=== PATIENT | male | born 1935 | race Caucasian/White ===

== ENCOUNTER 2018-05-25 10:41 | Inpatient (IN) | payer MEDICARE, OTHER ==
[~2018-05-25] VITALS: Ht 182.9 cm; Wt 83.0 kg
[2018-05-25] MEDS ORDERED: KLOR-CON 1010 MEQ PO (10:53)
[2018-05-25 10:54] VITALS: BP 119/43
[2018-05-25] MEDS ORDERED: XARELTO20 MG PO (10:54)
[2018-05-25] MEDS ORDERED: PACERONE 200 M200 M1 PO (10:54)
[2018-05-25] MEDS ORDERED: LASIX 40 MG TAB40 M2 PO (10:54)
[2018-05-25] MEDS ORDERED: TOPROL XL25 MG PO (10:55)
[2018-05-25] MEDS ORDERED: ASPIR 8181 MG PO (10:56)
[2018-05-25 11:11] LABS: ABSOLUTE BASOPHILS 0.1 thou/uL (0.0-0.2); ABSOLUTE EOSINOPHILS 0.3 thou/uL (0.0-0.7); ABSOLUTE LYMPHOCYTES 1.3 thou/uL (0.8-5.3); ABSOLUTE MONOCYTES 0.3 thou/uL (0.0-1.2); ABSOLUTE NEUTROPHILS 2.5 thou/uL (1.6-8.1); BASOPHILS 1.2 %; HEMATOCRIT 30.3 % (42.0-52.0); HEMOGLOBIN 9.9 gm/dL (14.0-18.0); LYMPHOCYTES 29.6 %; MCH 28.3 pg (26.0-34.0); MCHC 32.5 g/dL (28.0-37.0); MCV 87.1 fL (80.0-100.0); MONOCYTES 6.2 %; MPV 6.6 fl. (7.2-11.1); NUCLEATED RBCS 0 /100WBC; PLATELET COUNT* 134 thou/uL (150-400); RBC 3.48 mil/uL (4.50-6.00); RDW-CV 16.2 % (10.5-14.5); WBC 4.5 thou/uL (4.0-11.0)
[2018-05-25 11:21] LABS: ANION GAP 8 mmol/L (7-16); BUN 22 mg/dL (7-18); CHLORIDE 105 mmol/L (98-107); CO2 27 mmol/L (21-32); CREATININE 1.3 mg/dL (0.6-1.3); GLUCOSE 88 mg/dL (70-99); POTASSIUM 4.6 mmol/L (3.5-5.1); SODIUM 140 mmol/L (136-145)
[2018-05-25 11:27] LABS: ALBUMIN 2.7 g/dL (3.4-5.0); ALKALINE PHOSPHATASE 53 U/L (46-116); SGOT 19 U/L (15-37); SGPT 21 U/L (30-65); TOTAL BILIRUBIN 0.5 mg/dL (<0.1-1.0); TOTAL PROTEIN 5.6 g/dL (6.4-8.2); TROPONIN-I LEVEL <0.06 ng/mL (<0.06)
[2018-05-25 14:37] VITALS: BP 99/45
[2018-05-25 15:14] VITALS: BP 122/42
--- NOTE | 2018-05-25 17:49 | EKG ---
[place] [address] ELECTROCARDIOGRAM REPORT Name: PRADIP DALLAS Room: [address] ADM IN M.R.#: [id number] Admission: 05/25/18 Attend Phys: Sarah Brown MD Discharge: Date of : 35 Report #: [id number] THIS REPORT FOR: //name// [facility] ED Test Date: 2018-05-25 Test Time: 11:03:01 Pat Name: PRADIP DALLAS Department: Room: [facility] Gender: M Cream Gatherer: JEREMIE DONNELLY : 1935 Requested By: Allyssa Bird Order Number: [id number] MD: Jurgen Simpson Measurements Intervals [place] Rate: 67 P: AK: QRS: -42 QRSD: 106 T: QT: 432 QTc: 456 Interpretive Statements Atrial flutter with predominant 4:1 AV block Left axis deviation Abnormal R-wave progression, late transition Repol abnrm, severe global ischemia (LM/MVD) Artifact in lead(s) I,II,III,aVR,aVL,aVF,V1,V2 and baseline wander in lead(s) V3 No previous ECG available for comparison Electronically Signed On 05-25-2018 17:49:42 REROLLER HAND by Jurgen Simpson [email or web address] <ELECTRONICALLY SIGNED> By: Jurgen Simpson MD, FACC 05/25/18 1749 1103 1103 Jurgen Simpson MD, FACC /EPI
--- NOTE | 2018-05-25 18:46 | NUR ---
PT TO FLOOR AT APPROX 1500 THIS SHIFT. PT IS ALERT AND ORIENTED TO SELF, POOR HISTORIAN. TELE TRACKING AFIB RATES 60'S-70'S, VSS ON ROOM AIR. RIGHT ARM DRESSED WITH MODERATE DRAINAGE. DENIES PAIN, NUMBNESS OR TINGLING TO RIGHT ARM. PT AND FAMILY EDUCATED ON SAFETY AND PLAN OF CARE. PLEASE SEE ASSESSMENT FOR ADDITIONAL INFORMATION. WILL CONTINUE TO MONITOR.
[2018-05-25 20:00] VITALS: BP 101/49
[2018-05-25 20:23] LABS: APTT 36.7 Seconds (25.0-31.3); INR 1.4; PROTIME 13.9 Seconds (9.20-11.50)
[2018-05-26] VITALS: BP 88/42
[2018-05-26 04:00] VITALS: BP 137/65
--- NOTE | 2018-05-26 04:57 | NUR ---
ASSUMED PT CARE @ 1930. A + O X 3. WOUND CARE TO PTS R FOREARM SKIN TEAR. DRESSING AND CHRISTA WRAP AND CHUX SATURED WITH BLOOD. NO BLEEDING OBSERVED AFTER WOUND CARE PROVIDED WITH FOAM DRESSING KERLEX AND CHRISTA WRAP. PT HAS 3+ EDEMA ON R HAND THROUGH OUT SHIFT. ELEVATED HAND ON MULTIPLE PILLOWS. PT COMPLIANT W ELEVATION. REMOVED ACEWRAP. WILL CONTINUE TO OBSERVE TO SEE IF SWELLING IMPROVES AND PASS ON IN REPORT. NO OTHER ISSUES NOTED. SEE EMAR AND CHARTING. CALL LIGHT AT BEDSIDE. HOURLY ROUNDING DONE FOR SAFETY.
[2018-05-26 05:10] LABS: HEMATOCRIT 24.1 % (42.0-52.0); MCH 28.7 pg (26.0-34.0); MCHC 33.1 g/dL (28.0-37.0); MCV 86.7 fL (80.0-100.0); RBC 2.78 mil/uL (4.50-6.00); RDW-CV 16.2 % (10.5-14.5); WBC 5.2 thou/uL (4.0-11.0)
[2018-05-26 05:22] LABS: CALCIUM 7.9 mg/dL (8.5-10.1); CREATININE 1.3 mg/dL (0.6-1.3); MAGNESIUM 1.9 mg/dL (1.8-2.4); POTASSIUM 4.5 mmol/L (3.5-5.1)
[2018-05-26 08:00] VITALS: BP 92/51
--- NOTE | 2018-05-26 08:00 | NUR ---
ASSUMED CARE OF PT ASSESSED AND DOCUMENTED. PT IS ON CARDIAC MONITER TRACING ST HR 119. PT IS A&0 X3 AND HAS NO C/O PAIN. PT IS ON ROOM AIR AND IS AFEBRILE. PT IS ON FALL PRECATIONS PER FACILITY PROTOCOL. PT HAS A SOFT BP OF 92/51. DAUGHTER IS AT BEDSIDE. BED IS IN LOW POSITION CALL LIGHT IS IN REACH. WM.
--- NOTE | 2018-05-26 11:46 | NUR ---
WOUND CARE NOTE: CONSULT RECEIVED FOR RIGHT FOREARM WOUND. PATIENT SUSTAINED A SKIN TEAR ON TUESDAY THIS WEEK AND EVER SINCE THE SKIN TEAR HAS BEEN DRAINING. FROM NOTES, IT APPEARS THAT THE WOUND WAS SATURATING THE DRESSING AND CHUX OVER NIGHT. CURRENTLY NO STRIKETHROUGH ON DRESSING. REMOVED DRESSING. GENTLY REMOVED 2 OPTIFOAMS FROM WOUND. APPEARS THAT DISTAL MOST PORTION OF WOUND BED CONTINUES TO HAVE GELFOAM IN PLACE, LEFT IN PLACE TO NOT DISRUPT ANY CLOTS THAT MAY HAVE FORMED. PROXIMAL MOST PORTION OF WOUND WITH PINK, MOIST TISSUE. GENTLY CLEANSED WOUND WITH WOUND CLEANSER. WOUND MEASURES 7.5X2X0.1. ECCHYMOSIS NOTED TO JC-WOUND AND IN HAND. APPLIED MULTIPLE LAYERS OF VASELINE GAUZE. COVERED WITH 4X4. SECURED WITH ROLL GAUZE. PATIENT TOLERATED DRESSING CHANGE WELL. EDUCATED FAMILY MEMBER AND PATIENT ON DRESSING SELECTION, COMMUNICATED UNDERSTANDING. RECOMMEND USE MULTIPLE LAYERS OF VASELINE GAUZE OVER WOUND BED. CHANGE DRESSING DAILY DO NOT REMOVE GELFOAM, WILL COME OFF/DISOLVE ON OWN. PROTECT AREA FROM TRAUMA ENCOURAGE GOOD NUTRTION/HYDRATION FOR WOUND HEALING FOLLOW UP IN WOUND CENTER UPON DISCHARGE
[2018-05-26 12:00] VITALS: BP 101/70
--- NOTE | 2018-05-26 15:17 | NUR ---
Pt is A&O. Resides at home with his dtr and extended family. Dtr completes ADLs. Pt uses a RW for household mobility. Pt has a wc, power wc and hospital bed. Pt recently moved to this area. Hx of HH. CM spoke with PT regarding disposition, PT recommended at the least HH at dc, but Pt could also benefit from skilled. CM following for disposition.
--- NOTE | 2018-05-26 15:40 | 2DMMODE ---
[place] [address] 2 D/M-MODE ECHOCARDIOGRAM Name: CELENAPRADIP L Room: [address] IN [facility]#: [id number] Admission: 05/25/18 Attend Phys: Sarah Brown, Discharge: Date of : 35 Date of Service: 05/26/18 1540 Report #: [id number] THIS REPORT FOR: //name// APPROVED REPORT Study performed: 05/26/2018 10:18:34 EXAM: Comprehensive 2D, Doppler, and color-flow Echocardiogram Patient Location: In-Patient Room #: [facility] Status: routine BSA: 2.10 HR: 88 bpm BP: 92/51 mmHg Rhythm: Atrial Flutter Other Information Study Quality: Good Indications Atrial Fibrillation 2D Dimensions IVSd: 9.06 (7-11mm) LVOT Diam: 22.85 (18-24mm) LVDd: 51.82 mm PWd: 10.10 (7-11mm) Ascending Ao: 35.28 (22-36mm) LVDs: 39.81 (25-40mm) Aortic Root: 37.54 mm Volumes Left Atrial Volume (Systole) LA ESV Index: 50.50 mL/m2 Aortic Valve AoV Peak Jaren.: 1.36 m/s AO Peak Gr.: 7.43 mmHg LVOT Max P.29 mmHg AO Mean Gr.: 4.30 mmHg LVOT Mean P.19 mmHg LVOT Max V: 0.76 m/s AO V2 VTI: 22.54 cm LVOT Mean V: 0.50 m/s DARLENE (VTI): 2.33 cm2 LVOT V1 VTI: 12.83 cm Mitral Valve MV Decel. Time: 162.62 ms MV PHT: 47.16 ms MVA (PHT): 4.67 cm2 [place] [address] 2 D/M-MODE ECHOCARDIOGRAM Name: PRADIP DALLAS Room: [address] IN [facility].#: [id number] Admission: 05/25/18 Attend Phys: Sarah Brown, Discharge: Date of : 35 Date of Service: 05/26/18 1540 Report #: [id number] TDI Medial E' Jaren.: 0.14 m/s Lateral E' Jaren.: 0.17 m/s Pulmonary Valve PV Peak Jaren.: 0.69 m/s PV Peak Gr.: 1.92 mmHg Tricuspid Valve RAP Estimate: 5.00 mmHg TR Peak Gr.: 21.34 mmHg RVSP: 26.00 mmHg PA Pressure: 26.00 mmHg Left Ventricle The left ventricle is normal size. There is moderate global hypokinesis. There is normal left ventricular wall thickness. Left ventricular systolic function is moderately decreased. LVEF is 35-40%. This study is not technically sufficient to allow evaluation of the LV diastolic function due to atrial fibrillation. Right Ventricle The right ventricle is normal size. The right ventricular systolic function is normal. Atria Left atrium is severely dilated. Right atrium is moderately dilated. Aortic Valve Mild aortic valve sclerosis. No aortic regurgitation is present. There is no aortic valvular stenosis. Mitral Valve The mitral valve is normal in structure. Trace mitral regurgitation. No evidence of mitral valve stenosis. Tricuspid Valve The tricuspid valve is normal in structure. Mild tricuspid regurgitation. No pulmonary hypertension. Pulmonic Valve The pulmonary valve is normal in structure. There is no pulmonic valvular regurgitation. Great Vessels The aortic root is normal in size. IVC is [place] [address] 2 D/M-MODE ECHOCARDIOGRAM Name: PRADIP DALLAS Room: [address]#: [id number] Admission: 05/25/18 Attend Phys: Sarah Brown, Discharge: Date of : 35 Date of Service: 05/26/18 1540 Report #: [id number] collapses >50% with inspiration. Pericardium There is no pericardial effusion. <Conclusion> The left ventricle is normal size. There is normal left ventricular wall thickness. Left ventricular systolic function is moderately decreased. LVEF is 35-40%. There is moderate global hypokinesis. Left atrium is severely dilated. Right atrium is moderately dilated. Trace mitral regurgitation. Mild tricuspid regurgitation. No pulmonary hypertension. <ELECTRONICALLY SIGNED> By: Jurgen Simpson MD, FACC 05/26/18 1540 1540 1540 Jurgen Simpson MD, FACC /INF
[2018-05-26 16:11] VITALS: BP 97/59
[2018-05-26 20:00] VITALS: BP 110/48
[2018-05-27 00:55] VITALS: BP 102/45
[2018-05-27 04:32] VITALS: BP 99/50
[2018-05-27 04:43] LABS: HEMATOCRIT 23.5 % (42.0-52.0); HEMOGLOBIN 7.9 gm/dL (14.0-18.0); MCH 28.7 pg (26.0-34.0); MCHC 33.5 g/dL (28.0-37.0); MCV 85.8 fL (80.0-100.0); MPV 6.7 fl. (7.2-11.1); RBC 2.74 mil/uL (4.50-6.00); RDW-CV 16.1 % (10.5-14.5)
[2018-05-27 05:03] LABS: CALCIUM 7.8 mg/dL (8.5-10.1); CREATININE 1.3 mg/dL (0.6-1.3); MAGNESIUM 1.9 mg/dL (1.8-2.4)
--- NOTE | 2018-05-27 05:57 | NUR ---
PATIENT RESTED IN BED, PATIENT SHOWED SIGNS OF CONFUSSION AND FORGETFULNESS. PATIENT DID NOT SHOW SIGNS OF DISTRESS. FALL PRECAUTIONS IN PLACE, CALL LIGHT WITH IN REACH, HOURLY ROUNDING OBSERVED, BED ALARM ON. PATIENT DID NOT SHOW SIGNS OF BLEEDING.
--- NOTE | 2018-05-27 07:30 | NUR ---
CHANGE OF SHIFT BEDSIDE REPORT GIVEN PATIENT SEEN AT BEDSIDE IN BED ASLEEP ASSUMED PATIENT CARE
[2018-05-27 08:00] VITALS: BP 94/50
[2018-05-27 12:11] VITALS: BP 101/46
--- NOTE | 2018-05-27 15:06 | NUR ---
CM spoke with dtr regarding disposition. Dtr wants Pt to dc home with HH, does not want skilled. Dtr wishes to use [facility] at dc. Pt's facesheet, H&P and dc orders (including signed face 2 face) will need to be faxed to [phone] p:[phone]
[2018-05-27 17:13] VITALS: BP 100/45
--- NOTE | 2018-05-27 18:34 | NUR ---
PATIENT A AND O X 3, FORGETFUL AFIB CTA/DIM/RA AMENDED DIET HONEY-THICK LIQ LAST BM T-1 URINE PER URINAL UP WITH 1 ASSIST TO CHAIR IV 20 GA SL L AC NO C/O PAIN R FA WOUND DRSG CHANGE TODAY PER DRS ORDERS BED ALARM SET WHILE IN BED INSTRUCTION HONING JOB SETTER LIGHT GIVEN
[2018-05-27 20:00] VITALS: BP 98/45
[2018-05-28 00:46] VITALS: BP 103/58
--- NOTE | 2018-05-28 01:09 | NUR ---
PATIENT RESTED IN BED, NO ACUTE CHANGES. PATIENT DID NOT SHOW SIGNS OF DISTRESS. FALL PRECAUTIONS IN PLACE, CALL LIGHT WITH IN REACH, HOURLY ROUNDING OBSERVED, BED ALARM ON.
[2018-05-28 04:38] VITALS: BP 99/40
--- NOTE | 2018-05-28 07:10 | NUR ---
CHANGE OF SHIFT BEDSIDE REPORT GIVEN PATIENT SEEN AT BEDSIDE, IN BED ASLEEP ASSUMED CARE
[2018-05-28 08:00] VITALS: BP 116/50
[2018-05-28 13:13] VITALS: BP 114/56
[2018-05-28 16:00] VITALS: BP 105/46
[2018-05-28 19:50] VITALS: BP 115/49
[2018-05-29] VITALS: BP 77/50
[2018-05-29 04:00] VITALS: BP 99/53
--- NOTE | 2018-05-29 06:57 | NUR ---
VITALS WNL. SEE MAR. SEE CHARTING. FALL PRECATUIONS IN PLACE. HOURLY ROUNDING FOR SAFETY.
[2018-05-29 07:50] VITALS: BP 95/51
--- NOTE | 2018-05-29 08:38 | NUR ---
ASSUMED CARE OF PT AT 0730. PT RESTING IN BED DRINKING COFFEE. DAUGHTER AT BEDSIDE. PT A&0X3, FORGETFUL AND CONFUSED AT TIMES. PT DENIES ANY PAIN OR SHORTNESS OF BREATH AT THIS TIME. PT STATES HE IS READY TO GO HOME. PT TRACING A-FLUTTER ON THE BIOLOGICAL ENGINEER. BLOOD PRESSURE SOFT AT 94/50. SWATI SHRESTHA, CARDIOLOGY DELTA SYSTEM FREIGHT CAR CLEANER HERE TO SEE PT. ORDERS RECEIVED TO TISHA VELASQUEZ. REFER TO EMAR. PT ON RA SAT 98%. PT UP WITH 1 ASSIST, UNSTEADY AT TIMES. PT GOAL FOR TODAY IS TO MONITOR BLOOD PRESSURE, MEDICATION MGMT AND DISCHARGE PLANNING TO HOME WITH HOME HEALTH. AM ASSESSMENT CHARTED. MEDICATIONS PER AUG. PT REPOSITIONED EVERY 2 HOURS FOR COMFORT. HOURLY ROUNDING OBSERVED. BED IN LOW POSITION. BED ALARM IN PLACE. FALL PRECAUTIONS IN PLACE. CALL LIGHT WITHIN REACH. WILL CONTINUE PLAN OF CARE.
[2018-05-29] MEDS ORDERED: CARVEDILOL3.125 MG PO (10:56)
--- NOTE | 2018-05-29 11:22 | NUR ---
INSTRUCTIONAL LEADER SPOKE TO INTAKE WITH [facility] TO INFORM OF THE REFERRAL FOR HH, AND FAXED THE PATIENT'S FACESHEET, H&P, AND D/C ORDERS. CM WILL REMAIN AVIALABLE TO ASSIST AND FOLLOW NEEDED.
[2018-05-29 11:24] VITALS: BP 95/51
--- NOTE | 2018-05-29 13:20 | NUR ---
DISCHARGE ORDERS RECEIVED. DISCHARGE INSTRUCTIONS, CARE NOTES, SCRIPTS AND FOLLOW UP APPTS GIVEN TO PT. PT COMMUNICATES UNDERSTANDING OF DISCHARGE TEACHING. IV AND CUSTOMS AND BORDER PROTECTION INSPECTOR REMOVED. PT DISCHARGED WITH ALL BELONGINGS AND PAPERWORK VIA WHEELCHAIR WITH NURSING STAFF TO DAUGHTERS OWN PERSONAL VEHICLE. PT DISCHARGED TO HOME WITH HOME HEALTH.
== END 2018-05-29 13:22 | disposition home health service (06) | DRG 813 ==
LOC: M.ERS 10:41 → M.2W 13:02 → M.TBA-ER 13:02 → M.2W 15:11
PROVIDERS: Personal Emergency Response Attendant; ADMIT Internal Medicine
DX: D68.32 Hemorrhagic disorder due to extrinsic circulating anticoagulants (principal); I50.21 Acute systolic (congestive) heart failure; I48.92 Unspecified atrial flutter; I42.9 Cardiomyopathy, unspecified; E44.0 Moderate protein-calorie malnutrition; R00.1 Bradycardia, unspecified; I11.0 Hypertensive heart disease with heart failure; S51.811A Laceration without foreign body of right forearm, initial encounter; W18.39XA Other fall on same level, initial encounter; I08.1 Rheumatic disorders of both mitral and tricuspid valves; D69.6 Thrombocytopenia, unspecified; D64.9 Anemia, unspecified; Z79.01 Long term (current) use of anticoagulants; Z86.718 Personal history of other venous thrombosis and embolism; Z79.82 Long term (current) use of aspirin; Z79.899 Other long term (current) drug therapy; Y93.89 Activity, other specified; Y92.89 Other specified places as the place of occurrence of the external cause; Y99.8 Other external cause status; Z68.24 Body mass index [BMI] 24.0-24.9, adult

== ENCOUNTER → 2018-07-11 | Outpatient (CLI) | payer MEDICARE, OTHER ==
[2018-07-11] VITALS (8 sets, daily range): BP systolic 87–125; BP diastolic 35–64
[~2018-07-11] MED LIST: ASPIR 8181 MG PO; CARVEDILOL3.125 MG PO; KLOR-CON 1010 MEQ PO; LASIX 40 MG TAB40 M2 PO; PACERONE 200 M200 M1 PO; TOPROL XL25 MG PO; XARELTO20 MG PO
[2018-07-11 09:58] LABS: HEMATOCRIT 28.8 % (42.0-52.0); HEMOGLOBIN 9.5 gm/dL (14.0-18.0); MCH 29.4 pg (26.0-34.0); MPV 6.5 fl. (7.2-11.1); RBC 3.24 mil/uL (4.50-6.00); RDW-CV 16.6 % (10.5-14.5); WBC 5.7 thou/uL (4.0-11.0)
[2018-07-11 10:10] LABS: CALCIUM 8.2 mg/dL (8.5-10.1); CREATININE 1.2 mg/dL (0.6-1.3); POTASSIUM 3.9 mmol/L (3.5-5.1)
[2018-07-11 10:11] LABS: APTT 40.4 Seconds (25.0-31.3); INR 1.2; PROTIME 12.6 Seconds (9.20-11.50)
[2018-07-11 10:25] LABS: TOTAL BILIRUBIN 0.6 mg/dL (<0.1-1.0); TOTAL PROTEIN 6.5 g/dL (6.4-8.2)
--- NOTE | 2018-07-11 16:28 | EKG ---
[place] [address] ELECTROCARDIOGRAM REPORT Name: PRADIP DALLAS Room: [facility]#: [id number] Admission: 07/11/18 Attend Phys: Jurgen Simpson MD Discharge: Date of : 35 Report #: [id number] THIS REPORT FOR: //name// [facility] Test Date: 2018-07-11 Test Time: 10:02:31 Pat Name: PRADIP DALLAS Department: Room: Gender: M Computer Systems Consultant: : 1935 Requested By: Jurgen Simpson Order Number: [id number] Reading MD: Sid Valiente Measurements Intervals [place] Rate: 104 P: 0 NE: 106 QRS: -21 QRSD: 130 T: 72 QT: 378 QTc: 498 Interpretive Statements Atrial fibrillation Nonspecific intraventricular conduction delay Repol abnrm suggests ischemia, diffuse leads Artifact in lead(s) I,II,III,aVR,aVL,aVF,V2,V3,V4,V5,V6 and baseline wander in lead(s) II,aVR,aVF Electronically Signed On 07-11-2018 16:28:37 MATH TUTOR by Sid Valiente [email or web address] <ELECTRONICALLY SIGNED> By: Sid Valiente MD, [facility] 07/11/18 1628 1002 1002 Sid Valiente MD, [facility] /EPI
== END | disposition home or self-care (01) ==
LOC: M.CL 09:15
PROVIDERS: Internal Medicine Cardiovascular Disease
DX: I48.91 Unspecified atrial fibrillation (principal); I48.92 Unspecified atrial flutter; I11.0 Hypertensive heart disease with heart failure; I50.9 Heart failure, unspecified; I42.9 Cardiomyopathy, unspecified; D64.9 Anemia, unspecified; Z79.01 Long term (current) use of anticoagulants; Z79.82 Long term (current) use of aspirin; Z79.899 Other long term (current) drug therapy; Z86.73 Personal history of transient ischemic attack (TIA), and cerebral infarction without residual deficits; Z86.718 Personal history of other venous thrombosis and embolism; Z87.891 Personal history of nicotine dependence; Z82.49 Family history of ischemic heart disease and other diseases of the circulatory system

== ENCOUNTER → 2018-09-05 | Outpatient (CLI) | payer MEDICARE, OTHER ==
--- NOTE | 2018-09-05 11:28 | 2DMMODE ---
[place] [address] 2 D/M-MODE ECHOCARDIOGRAM Name: CELENAPRADIP L Room: [facility]#: [id number] Admission: 09/05/18 Attend Phys: Jurgen Simpson, Discharge: Date of : 35 Date of Service: 09/05/18 1128 Report #: [id number] THIS REPORT FOR: //name// APPROVED REPORT Study performed: 09/05/2018 10:09:12 EXAM: Comprehensive 2D, Doppler, and color-flow Echocardiogram Patient Location: Out-Patient Status: routine BSA: 2.10 HR: 48 bpm BP: 100/60 mmHg Other Information Study Quality: Good Indications Cardiomyopathy 2D Dimensions IVSd: 13.17 (7-11mm) LVOT Diam: 21.23 (18-24mm) LVDd: 48.90 mm PWd: 11.83 (7-11mm) Ascending Ao: 31.54 (22-36mm) LVDs: 31.32 (25-40mm) Aortic Root: 36.39 mm Volumes Left Atrial Volume (Systole) LA ESV Index: 25.20 mL/m2 Aortic Valve AoV Peak Jaren.: 1.19 m/s AO Peak Gr.: 5.62 mmHg LVOT Max P.14 mmHg AO Mean Gr.: 3.10 mmHg LVOT Mean P.52 mmHg LVOT Max V: 0.89 m/s AO V2 VTI: 34.36 cm LVOT Mean V: 0.57 m/s DARLENE (VTI): 2.75 cm2 LVOT V1 VTI: 26.72 cm Mitral Valve E/A Ratio: 0.59 MV Decel. Time: 300.43 ms MV E Max Jaren.: 0.58 m/s MV PHT: 87.13 [place] [address] 2 D/M-MODE ECHOCARDIOGRAM Name: PRADIP DALLAS Room: [facility]#: [id number] Admission: 09/05/18 Attend Phys: Jurgen Simpson, Discharge: Date of : 35 Date of Service: 09/05/18 1128 Report #: [id number] MVA (PHT): 2.53 cm2 TDI E/Lateral E': 7.25 E/Medial E': 7.25 Medial E' Jaren.: 0.08 m/s Lateral E' Jaren.: 0.08 m/s Pulmonary Valve PV Peak Jaren.: 0.77 m/s PV Peak Gr.: 2.40 mmHg Tricuspid Valve RAP Estimate: 5.00 mmHg TR Peak Gr.: 24.30 mmHg RVSP: 29.30 mmHg PA Pressure: 29.30 mmHg Left Ventricle The left ventricle is normal size. There is mild global hypokinesis. There is normal left ventricular wall thickness. Left ventricular systolic function is mildly decreased. LVEF is 45-50%. Grade I - abnormal relaxation pattern. Right Ventricle The right ventricle is normal size. The right ventricular systolic function is normal. Atria Left atrium is moderately dilated. Right atrium is moderately dilated. Aortic Valve Mild aortic valve sclerosis. No aortic regurgitation is present. There is no aortic valvular stenosis. Mitral Valve The mitral valve is normal in structure. There is no mitral valve regurgitation noted. No evidence of mitral valve stenosis. Tricuspid Valve The tricuspid valve is normal in structure. Mild tricuspid regurgitation. No pulmonary hypertension. Pulmonic Valve The pulmonary valve is normal in structure. There is no pulmonic valvular regurgitation[place] [address] 2 D/M-MODE ECHOCARDIOGRAM Name: PRADIP DALLAS [id number] Admission: 09/05/18 Attend Phys: Jurgen Simpson, Discharge: Date of : 35 Date of Service: 09/05/18 1128 Report #: [id number] The aortic root is normal in size. IVC is normal in size and collapses >50% with inspiration. Pericardium There is no pericardial effusion. <Conclusion> The left ventricle is normal size. There is normal left ventricular wall thickness. Left ventricular systolic function is mildly decreased. LVEF is 45-50%. Grade I - abnormal relaxation pattern. There is mild global hypokinesis. Left atrium is moderately dilated. Right atrium is moderately dilated. Mild aortic valve sclerosis. Mild tricuspid regurgitation. No pulmonary hypertension. IVC is normal in size and collapses >50% with inspiration. <ELECTRONICALLY SIGNED> By: Jurgen Simpson MD, FACC 09/05/18 1128 1128 1128 Jurgen Simpson MD, FACC /INF
== END ==
LOC: M.CRD 09:44
DX: I08.2 Rheumatic disorders of both aortic and tricuspid valves (principal); I42.8 Other cardiomyopathies; I25.10 Atherosclerotic heart disease of native coronary artery without angina pectoris

== ENCOUNTER → 2019-05-22 | Outpatient (CLI) | payer MEDICARE, OTHER ==
[2019-05-22 11:28] LABS: ALBUMIN 3.7 g/dL (3.4-5.0); DIRECT BILIRUBIN 0.1 mg/dL (<0.1-0.3); TOTAL BILIRUBIN 0.3 mg/dL (<0.1-1.0); TOTAL PROTEIN 7.2 g/dL (6.4-8.2)
== END ==
LOC: M.RAD 10:19
PROVIDERS: Internal Medicine Cardiovascular Disease
DX: J98.11 Atelectasis (principal); J98.4 Other disorders of lung; Z79.899 Other long term (current) drug therapy

== ENCOUNTER 2019-07-12 11:58 | Inpatient (IN) | payer MEDICARE, OTHER ==
[~2019-07-12] VITALS: Ht 188 cm; Wt 90.1 kg
[2019-07-12 12:13] VITALS: BP 114/49
[2019-07-12] MEDS ORDERED: CEFPROZIL250 MG/5 M PO (12:17)
--- NOTE | 2019-07-12 12:20 | NUR ---
IV INSERTED BY THIS NURSE. UNABLE TO DRAW BLOOD WORK. CLAY MACHINE OPERATOR MADE AWARE.
[2019-07-12 12:42] LABS: BE 0.8 mmol/L (-2 to +3); PCO2 44.7 mmHg (35.0-45.0); PO2 76.1 mmHg (75.0-100.0); pH 7.384 (7.340-7.450)
[2019-07-12 12:43] LABS: ABSOLUTE LYMPHOCYTES 0.7 thou/uL (0.8-5.3); ABSOLUTE MONOCYTES 0.5 thou/uL (0.0-1.2); ABSOLUTE NEUTROPHILS 5.1 thou/uL (1.6-8.1); BASOPHILS 0.6 %; EOSINOPHILS 0.6 %; HEMATOCRIT 30.3 % (42.0-52.0); HEMOGLOBIN 10.1 gm/dL (14.0-18.0); MCH 27.9 pg (26.0-34.0); MCHC 33.4 g/dL (28.0-37.0); MCV 83.8 fL (80.0-100.0); MONOCYTES 8.3 %; MPV 7.6 fl. (7.2-11.1); NUCLEATED RBCS 0 /100WBC; PLATELET COUNT* 104 thou/uL (150-400); POLYS 79.5 %; RBC 3.62 mil/uL (4.50-6.00); RDW-CV 16.3 % (10.5-14.5); WBC 6.4 thou/uL (4.0-11.0)
[2019-07-12 12:49] LABS: CALCIUM 8.9 mg/dL (8.5-10.1); CREATININE 1.4 mg/dL (0.6-1.3); POTASSIUM 4.6 mmol/L (3.5-5.1)
[2019-07-12 12:50] LABS: APTT 76.5 Seconds (25.0-31.3); INR 1.8; PROTIME 18.5 Seconds (9.20-11.50)
[2019-07-12 12:57] LABS: ALBUMIN 2.7 g/dL (3.4-5.0); TOTAL BILIRUBIN 0.4 mg/dL (<0.1-1.0); TOTAL PROTEIN 6.6 g/dL (6.4-8.2)
--- NOTE | 2019-07-12 15:43 | NUR ---
REPORT GIVEN TO ALBERTO CHEUNG WHO IS TO ASSUME PT CARE INPATIENT NURSE.
[2019-07-12 15:50] VITALS: BP 106/36
[2019-07-12 16:05] VITALS: BP 100/34
--- NOTE | 2019-07-12 17:10 | EKG ---
[place] [address] ELECTROCARDIOGRAM REPORT Name: PRADIP DALLAS Room: [address] ADM IN M.R.#: [id number] Admission: 07/12/19 Attend Phys: Rut Escalante Discharge: Date of : 35 Report #: [id number] THIS REPORT FOR: //name// [facility] ED Test Date: 2019-07-12 Test Time: 12:30:29 Pat Name: PRADIP DALLAS Department: Room: [facility] Gender: M Professor Of German: [facility] : 1935 Requested By: Hector Álvarez Order Number: [id number] MD: Sid Valiente Measurements Intervals [place] Rate: 40 P: -27 MT: 221 QRS: -25 QRSD: 128 T: 96 QT: 547 QTc: 447 Interpretive Statements Sinus bradycardia Nonspecific intraventricular conduction delay Borderline repolarization abnormality Compared to ECG 07/11/2018 10:02:31 Atrial fibrillation no longer present Possible ischemia no longer present Electronically Signed On 07-12-2019 17:09:19 CAKE MAKER by Sid Valiente [email or web address] <ELECTRONICALLY SIGNED> By: Sid Valiente MD, FAC 07/12/19 1709 1230 1230 Sid Valiente MD, [facility] /EPI
--- NOTE | 2019-07-12 18:04 | NUR ---
PT IS A/O X2,HR IN 30S-40s, CARDIOLOGY CONSULTED AND MADE MEDICATION CHANGES AND WILL MONITOR HR OVER NIGHT.ADMISSION COMPLETED TO THE BEST OF NURSE/PT ABILITY DUE TO COGNITION OF PT.NO C/O PAIN.IVF INFUSING PER ORDERS.IV ANTBIOTICS GIVEN.HOURLY ROUNDING COMPLETED FOR PT SAFETY.CALL LIGHT AND FALL PRECAUTIONS IN PLACE.WILL CONTINUE TO MONITOR FOR DURATION OF SHIFT.
[2019-07-12 20:00] VITALS: BP 99/39
[2019-07-12 21:22] LABS: CALCIUM 8.2 mg/dL (8.5-10.1); CREATININE 1.3 mg/dL (0.6-1.3); POTASSIUM 3.8 mmol/L (3.5-5.1)
[2019-07-13] VITALS (7 sets, daily range): BP systolic 113–147; BP diastolic 39–56
--- NOTE | 2019-07-13 02:23 | NUR ---
ASSUMED CARE OF PT AT 1900. PT WAS VERY LETHARGIC. BLOOD PRESSURE, PULSE AND TEMP WAS VERY LOW. THE BEST TEMP I COULD GET WAS 91.[address] NOTIFIED. BEAR DONELLGGER STARTED. ABOUT AN HOUR AFTER USING THE BEAR HUGGER HIS HEART RATE WENT UP TO THE 70'S AND NOW THE 80'S. HIS BLOOD PRESSURE HAS IMPROVED AND HIS LAST TEMP WAS 98. PT IS MUCH MORE AWAKE AND HAS BEEN EATING. PT IS IN SINUS RYTHM ON THE TELEMETRY. PT IS RESTING COMFORTABLY IN BED. RESPIRATIONS ARE EVEN AND NONLABORED. WILL CONTINUE TO MONITOR PT.
--- NOTE | 2019-07-13 13:13 | NUR ---
Spoke with Pt's caregiver in room. Pt resides at home with his dtr and JENNIFER, JENNIFER is retired and is home all day. Caregiver is in the home M-F from 9-3, and is from [facility]. Dtr and JENNIFER provide cares on the weekends. CG assists with ADLs and IADLs. Pt primarily uses a scooter but also has a walker that he uses sometimes. Hx of [facility]. No home o2. Goal is home at wi.
--- NOTE | 2019-07-13 13:29 | 2DMMODE ---
[place] [address] 2 D/M-MODE ECHOCARDIOGRAM Name: CELENAPRADIP L Room: [address] IN [facility]#: [id number] Admission: 07/12/19 Attend Phys: Gerard Garsia Discharge: Date of : 35 Date of Service: 07/13/19 1328 Report #: [id number] THIS REPORT FOR: //name// APPROVED REPORT Study performed: 07/13/2019 10:54:45 EXAM: Comprehensive 2D, Doppler, and color-flow Echocardiogram Patient Location: In-Patient Room #: [facility] Status: routine BSA: 2.22 HR: 66 bpm BP: 130/46 mmHg Rhythm: NSR Other Information Study Quality: Good Indications Dyspnea 2D Dimensions IVSd: 10.84 (7-11mm) LVOT Diam: 23.58 (18-24mm) LVDd: 54.30 mm PWd: 9.77 (7-11mm) Ascending Ao: 32.63 (22-36mm) LVDs: 29.21 (25-40mm) Aortic Root: 34.51 mm Volumes Left Atrial Volume (Systole) LA ESV Index: 46.40 mL/m2 Aortic Valve AoV Peak Jaren.: 1.63 m/s AO Peak Gr.: 10.57 mmHg LVOT Max P.56 mmHg AO Mean Gr.: 5.25 mmHg LVOT Mean P.96 mmHg LVOT Max V: 1.28 m/s AO V2 VTI: 33.28 cm LVOT Mean V: 0.78 m/s DARLENE (VTI): 4.09 cm2 LVOT V1 VTI: 31.16 cm Mitral Valve E/A Ratio: 0.74 MV Decel. Time: 256.92 ms MV E Max Jaren.: 0.82 m/[place] [address] 2 D/M-MODE ECHOCARDIOGRAM Name: PRADIP DALLAS Room: [address] IN ..#: [id number] Admission: 07/12/19 Attend Phys: Gerard Garsia Discharge: Date of : 35 Date of Service: 07/13/19 1328 Report #: [id number] MV PHT: 74.51 ms MVA (PHT): 2.95 cm2 TDI E/Lateral E': 7.45 E/Medial E': 8.20 Medial E' Jaren.: 0.10 m/s Lateral E' Jaren.: 0.11 m/s Pulmonary Valve PV Peak Jaren.: 1.00 m/s PV Peak Gr.: 3.97 mmHg Tricuspid Valve RAP Estimate: 5.00 mmHg TR Peak Gr.: 37.85 mmHg RVSP: 42.00 mmHg PA Pressure: 42.00 mmHg Left Ventricle The left ventricle is normal size. There is normal LV segmental wall motion. There is normal left ventricular wall thickness. Left ventricular systolic function is normal. The left ventricular ejection fraction is within the normal range. LVEF is 55-60%. Grade I - abnormal relaxation pattern. Right Ventricle The right ventricle is normal size. The right ventricular systolic function is normal. Atria Left atrium is mildly dilated. The right atrium size is normal. Aortic Valve Moderate aortic valve sclerosis. No aortic regurgitation is present. There is no aortic valvular stenosis. Mitral Valve The mitral valve is normal in structure. There is no mitral valve regurgitation noted. No evidence of mitral valve stenosis. Tricuspid Valve The tricuspid valve is normal in structure. Mild tricuspid regurgitation. Moderate pulmonary hypertension. Pulmonic Valve The pulmonary valve is normal in structure. There is no pulmonic [place] [address] 2 D/M-MODE ECHOCARDIOGRAM Name: PRADIP DALLAS Kacey Room: [address]#: [id number] Admission: 07/12/19 Attend Phys: Gerard Garsia Discharge: Date of : 35 Date of Service: 07/13/19 1328 Report #: [id number] Great Vessels The aortic root is normal in size. IVC is normal in size and collapses >50% with inspiration. Pericardium There is no pericardial effusion. <Conclusion> The left ventricle is normal size. There is normal left ventricular wall thickness. Left ventricular systolic function is normal. The left ventricular ejection fraction is within the normal range. LVEF is 55-60%. Grade I - abnormal relaxation pattern. The right ventricle is normal size. Left atrium is mildly dilated. The right atrium size is normal. Moderate aortic valve sclerosis. No aortic regurgitation is present. There is no aortic valvular stenosis. The mitral valve is normal in structure. Mild tricuspid regurgitation. Moderate pulmonary hypertension. IVC is normal in size and collapses >50% with inspiration. There is no pericardial effusion. There is normal LV segmental wall motion. <ELECTRONICALLY SIGNED> By: Sid Valiente MD, FACC 07/13/19 1328 1328 Sid Valiente MD, FACC /INF
--- NOTE | 2019-07-13 13:45 | CON ---
[address] [address] CONSULTATION Name: CELENAPRADIP L Room: [address] IN M.R.#: [id number] Admission: 07/12/19 Attend Phys: Rut Escalante Discharge: Date of : 35 Report #: [id number] THIS REPORT FOR: //name// CC: Gerard Arias DO INDICATION: Bradycardia. HISTORY OF PRESENT ILLNESS: The patient is a very pleasant 84-year-old gentleman who is well known to myself. He has a history of paroxysmal atrial fibrillation and flutter. He is status post cardioversion and maintaining sinus rhythm on amiodarone. The patient was seen in the Emergency Room with cough, upper respiratory tract infection symptoms and lethargy. He was noted to be profoundly bradycardic. At present, his heart rate is 40 and regular. It appears to be a sinus bradycardia. His amiodarone has been held. He is still in sinus rhythm. He has a mild cardiomyopathy with an EF of 45-50% that is felt to be nonischemic. He has chronic lower extremity swelling that appears stable on diuretic regimen. He is without chest pain. He denies shortness of breath. PAST MEDICAL HISTORY: 1. Paroxysmal atrial fibrillation and flutter. 2. Chronic bradycardia. 3. 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 4. Hypercoagulable state due to atrial fibrillation. 5. Remote history of cerebrovascular accident. 6. Remote history of deep venous thrombosis. 7. Hypertension. PAST SURGICAL HISTORY: 1. Laryngectomy. 2. Left ear skin cancer removed. 3. Tonsillectomy. FAMILY HISTORY: Noncontributory. SOCIAL HISTORY: The patient quit smoking remotely. He does not drink alcohol. PHYSICAL EXAMINATION: VITAL SIGNS: Blood pressure 100/34, pulse 44 and regular. GENERAL: This is a lethargic, elderly male who does [place] [address] CONSULTATION Name: PRADIP DALLAS Kacey Room: [address]#: [id number] Admission: 07/12/19 Attend Phys: Rut Escalante Discharge: Date of : 35 Report #: [id number] distress. HEENT: Head is normocephalic, atraumatic. Extraocular muscles intact. Mucous membranes are moist. NECK: Shows no jugular venous distention. CHEST: Reveals diminished breath sounds throughout. CARDIOVASCULAR: Reveals a bradycardic rhythm that is regular, without gallop or murmur. ABDOMEN: Reveals normal bowel sounds. EXTREMITIES: Shows 2+ edema to the mid tibias bilaterally. SKIN: Dry. LABORATORY DATA: Reviewed. Sodium 145, potassium 4.6, chloride 108, bicarbonate 32, BUN 43, creatinine 1.4, serum glucose 90. Troponin less than 0.06 on 3 separate occasions. NT-proBNP 498. White blood cell count 6.4, hemoglobin 10.1, platelet count 104,000. Chest x-ray shows slow improvement in pattern of bibasilar pneumonitis. IMPRESSION AND RECOMMENDATIONS: 1. Chronic bradycardia exacerbated by amiodarone. I am holding amiodarone at this time. 2. Paroxysmal atrial fibrillation/flutter. The patient maintaining sinus rhythm after recent cardioversion. We are holding amiodarone at this time. He is chronically anticoagulated. 3. Hypercoagulable state due to atrial fibrillation and flutter. Continue chronic anticoagulation with Xarelto. 4. Chronic anticoagulation, presently stable. The patient is having no bleeding problems related to anticoagulation. 5. Nonischemic cardiomyopathy appears to be fairly well compensated at this time. Continue home diuretic regimen. 6. Lower extremity edema appears stable. Continue home diuretic regimen. 7. Acute renal failure. We will follow labs in a.m. and make adjustments to medications as needed. <ELECTRONICALLY SIGNED> By: Jurgen Simpson MD, FACC 07/13/19 1345 [id number] [id number] Simpson MD, FACC /nt
--- NOTE | 2019-07-13 20:38 | NUR ---
VSS, ORIENTED TO SELF ONLY, SA TO SR ON TELE, FAMILY AND HIRED CAREGIVER AT BEDSIDE. VOIDS IN URINAL. BEDREST AND TOO WEAK TO AMBULATE. NC@2L, HOURLY ROUNDING PERFORMED, POSSESSIONS AND CALL LIGHT WITHIN REACH. PATIENT REQUIRES NECTAR THICK LIQUIDS. TAKES PILLS CRUSHED IN APPLESAUCE OR SLIGHTLY CRUSHED IN NECTAR THICK LIQUID.
[2019-07-14] VITALS (7 sets, daily range): BP systolic 79–180; BP diastolic 50–85
--- NOTE | 2019-07-14 02:37 | NUR ---
ASSUMED CARE OF PT AT 1900. PT IS CONFUSED. NO COMPLAINTS OF PAIN. PT APPEARS TO BE ASPIRATING. PTS GUAFENISEN HELD DUE TO ASPIRATION. PT IS IN SINUS RYTHM ON THE TELEMETRY. PT IS RESTING COMFORTABLY IN BED. RESPIRATIONS ARE EVEN AND NONLABORED. WILL CONTINUE TO MONITOR PT.
[2019-07-14 06:07] LABS: CALCIUM 8.1 mg/dL (8.5-10.1); CREATININE 1.4 mg/dL (0.6-1.3); POTASSIUM 3.9 mmol/L (3.5-5.1)
--- NOTE | 2019-07-14 08:30 | NUR ---
ASSUMED CARE AFTER REPORT APPROX 0730. ORIENTED TO SELF. UNABLE TO EXPRESS NEEDS EFFECTIVELY. PATIENT RESPONDS TO ORIENTATION QUESTIONS WITH GRAVELLY VOICE. PATIENT TOOK SIPS OF HONEY THICKENED LIQUID, APPEARS THAT SWALLOW IS PAINFUL. RESPONDS "YES" WHEN ASKED IF SWALLOW IS PAINFUL. PATIENT FED BY RADIATION PROTECTION TECHNICIAN BUT AFTER TAKING LONG TIME TO SWALLOW FIRST BITE, THEN SPITTING IT OUT, FEEDING WAS STOPPED. ASSESSMENT COMPLETE, VS OBTAINED, WNL. BACK TACKER IN PLACE, SR 1DEGREE AV BLOCK, BBB. INCONTINENCE CARE GIVEN. CALL LIGHT IN REACH. FREQUENT CHECKS FOR SAFETY OR NEEDS.
[2019-07-15] VITALS: BP 119/38
[2019-07-15 04:00] VITALS: BP 124/56
--- NOTE | 2019-07-15 05:06 | NUR ---
PATIENT UNAROUSABLE THROUGH SHIFT. PLACED ON NON-REBREATHER R/T DECLINING OXYGEN SATURATION LEVELS. MAINTAINING OXYGENATION GREATER THAN 90% ON NRB. TURNED Q2H. NOTED FEVER, GAVE TYLENOL WHICH DID RESULT IN A DECLINE BACK TO NORMAL TEMP. TEMPERATURE NOTED TO BE ON THE RISE AGAIN THIS AM. 99.8DEG AT 0400 ROUNDS. NOTED TO HAVE A DROP IN PULSE RATE OF APPROX 10 BPM THROUGH THE NIGHT. PILLOWCASE MAKER AND HOURLY ROUNDING COMLETED DOCUMENTED.
[2019-07-15 08:00] VITALS: BP 130/46
--- NOTE | 2019-07-15 08:00 | NUR ---
ASSUMED CARE AFTER REPORT APPROX 0730. LETHARGIC WITH NO RESPONSE TO ORIENTATION QUESTIONS. PATIENT HAD BRIEF PERIOD OF LOW 02 SAT BUT RETURNED TO >92%. REPOSITIONED PATIENT. RT TO BEDSIDE FOR ASSESSMENT AND O2 MONITOR. CONTINUOUS O2 MONITOR ON NOW. NONREBREATHER IN PLACE. PHYSICIAN PAGED TO REPORT DESATS. DAUGHTER MESFIN CALLED, PROVIDED UPDATE. FREQUENT CHECKS FOR PATIENT NEEDS/SAFETY.
[2019-07-15 12:00] VITALS: BP 117/61
[2019-07-15 16:00] VITALS: BP 128/44
--- NOTE | 2019-07-15 17:15 | NUR ---
HALL CATHETER ORDER OBTAINED. CATHETER PLACED, DEPENDENT DRNG, CLR YELLOW URINE.
[2019-07-15 18:55] LABS: INFLUENZA A ANTIGEN Negative (Negative); INFLUENZA B ANTIGEN Negative (Negative)
[2019-07-15 20:00] VITALS: BP 138/51
[2019-07-16] VITALS (7 sets, daily range): BP systolic 110–144; BP diastolic 39–50
[2019-07-16 05:20] LABS: ALBUMIN 1.8 g/dL (3.4-5.0); CALCIUM 7.9 mg/dL (8.5-10.1); CREATININE 1.7 mg/dL (0.6-1.3); MAGNESIUM 2.4 mg/dL (1.8-2.4); TOTAL PROTEIN 5.9 g/dL (6.4-8.2)
[2019-07-16 05:21] LABS: HEMATOCRIT 23.1 % (42.0-52.0); HEMOGLOBIN 7.6 gm/dL (14.0-18.0); MCH 27.8 pg (26.0-34.0); MCHC 33.1 g/dL (28.0-37.0); MCV 84.1 fL (80.0-100.0); MPV 7.9 fl. (7.2-11.1); NUCLEATED RBCS 0 /100WBC; PLATELET COUNT* 102 thou/uL (150-400); RBC 2.75 mil/uL (4.50-6.00); RDW-CV 15.9 % (10.5-14.5); WBC 11.6 thou/uL (4.0-11.0)
[2019-07-16 05:43] LABS: ABSOLUTE LYMPHOCYTES 0.8 thou/uL (0.8-5.3); ABSOLUTE MONOCYTES 0.1 thou/uL (0.0-1.2); ABSOLUTE NEUTROPHILS 10.7 thou/uL (1.6-8.1); ANISOCYTOSIS 1+; PLATELET ESTIMATE DECREASED; POIKILOCYTOSIS 1+
--- NOTE | 2019-07-16 07:32 | NUR ---
PATIENT RESTED THROUGH THE NIGHT. ALERT TO SELF THIS MORNING AND ABLE TO VERBALIZE COMFORT WITH POSITIONING. ATTEMPTED TO STEP- DOWN FROM NRB TO HIGH FLOW WITH RESP THERAPY. PATIENT UNABLE TO MAINTAIN O2 LEVELS, PLACED BACK ON NRB. ORAL AND NASAL CARE COMPLETED SEVERAL TIMES. PATIENT DESATS EVERYTIME THIS CARE IS PROVIDED, PROVIDED WITH CAUTION. CONT PULSE OX IN PLACE. NOTED TREND IN HEARTRATE, DROPPING APPROX 10 BPM Q 24H. HGB DOWN TO 7.6 FROM 10.6 4 DAYS AGO. NO ACTIVE BLEEDING NOTED, NO TARRY STOOLS. AFEBRILE THIS SHIFT. NO CMPLAINTS OF PAIN OR DISCOMFORT. RN ASSESSMNET AND HOURLY ROUNDING COMPLETED DOCUMENTED. FALL RISK PRECAUTIONS IN PLACE
--- NOTE | 2019-07-16 09:54 | NUR ---
assumed pt care report received from nurse. pt is alert, awake, ox2, on 15 l o2 with non rebreather mask. no complaint. pt nose is dry and contains dry blood clots. nasal care performed at bedside. pt is kept npo due to previous chocking per night nurse. speech therapy saw pt in his room at 0900 am. speech herapy performed mouth care at bedside. according to speech therapist evaluation, pt will need a video swallowing exam at 1100 am and be kept npo until further notice. npo sign on. water bottle added to oxygen for humidification. pt turned this am at 0900 no bed sore or area of pressure noticed in pt's behind. healthcare receptionist in room as well as pt's daughter. iv potassium replacement given to pt. iv fluid and iv antibiotic infusing as ordered. ot/pt/st on board. iv lasix and protonix given this am. safety in place. will conitnue to monitor pt.
--- NOTE | 2019-07-16 18:17 | NUR ---
FOUR DOSES OF POTASSIUM GIVEN TO PATIENT THIS SHIFT TO REPLACE HIS LOW POTASSIUM LEVEL OF 3.0. TWO MORE DOSES ARE NEEDED BEFORE CHECKING K LEVEL AGAIN. Q2TURN. BED BATH GIVEN TO PT BY TECH. NPO STATUS MAINTAINED PER SPEECH THERAPY RECOMMENDATION AFTER EVALUATION WAS DONE AT BEDSIDE. PT LOOKS LETHARGIC AND SLEEPS ALL AFTERNOON AFTER RECEIVING BED BATH. FALL PRECAUTION IN PLACE. WCTM
[2019-07-17 04:00] VITALS: BP 104/57
--- NOTE | 2019-07-17 05:50 | NUR ---
ASSUMED PATIENT CARE [id number]. PATIENT ALERT AND ORIENTED. COMPLAINTS OF DRY MOUTH, ORAL CARE PROVIDED. LARGE AMOUNT OF HARDENED BLOOD REMOVED FROM NASAL CAVITIES THROUGH THE NIGHT. REMAINS ON NRB AT 15L. HALL IN PLACE. AWAKE MOST OF THE NIGHT. TURNS Q2H. FALL RISK PRECAUTIONS IN PLACE. NO COMPLAINTS OF PAIN. MANAGER TRADING AND HOURLY ROUNDING COMPLETED CHARTED
[2019-07-17 06:07] LABS: HEMATOCRIT 21.7 % (42.0-52.0); HEMOGLOBIN 7.1 gm/dL (14.0-18.0); MCH 27.6 pg (26.0-34.0); MCHC 32.8 g/dL (28.0-37.0); MCV 84.3 fL (80.0-100.0); MPV 8.5 fl. (7.2-11.1); RBC 2.57 mil/uL (4.50-6.00); RDW-CV 15.7 % (10.5-14.5); WBC 19.7 thou/uL (4.0-11.0)
[2019-07-17 06:15] LABS: CALCIUM 7.9 mg/dL (8.5-10.1); CREATININE 1.6 mg/dL (0.6-1.3); MAGNESIUM 2.6 mg/dL (1.8-2.4); POTASSIUM 3.3 mmol/L (3.5-5.1)
--- NOTE | 2019-07-17 07:04 | NUR ---
WHILE HANGING IV POTASSIUM FOR PATIENT. NOTED THAT URINE IS NOW BLOOD TINGED.
[2019-07-17 08:00] VITALS: BP 97/51
--- NOTE | 2019-07-17 12:11 | NUR ---
ASSUMED PT CARE REPORT RECEIVED FROM NURSE PT IS AOX3, ON 15 L NONREBREATHER. CONTINUOUS PULSE OXYGEN ON. O2 SATURATION IS 98%. VSS. SPEECH THERAPY SAW PT IN ROOM. PT RESTARTED ON A MECH GROUND DIET. PT ATE BREAKFAST OK. PT TOOK HIS AM PILLS CRUSHED IN APPLE SAUCE. VIDEO SWALLOWING TO BE PERFORMED AT 0230 TODAY. PT THEN SAW PHYSICAL THERAPY IN ROOM. PT OUT OF BED TO RECLYNER WITH PHYSICAL THERAPIST HELP. PT NON REBREATHER CHANGED TO HIGH FLOW. HUMIDIFIER WATER BOTTLE IN PLACE. PT COUGH LOT OF BLOOD TINGED SPUTUM THIS AM. MRSA SWAB COLLECTED AND SENT TO LAB. ORAL POTASSIUM REPLACEMENT DONE TO FINISH PRIOR IV REPLACEMENT. IV FLUID INFUSING AT 80 PER HOUR. IV VANCO AND ZOSYN GIVEN ORDERED. PT HAD A LARGE BOWEL MOVEMENT TODAY. HALL IN PLACE. FALL PRECAUTION IN PLACE. WILL CONTINUE TO MONITOR PT.
[2019-07-17 12:26] VITALS: BP 113/39
--- NOTE | 2019-07-17 13:07 | NUR ---
Acute rehab does not think that Pt can tolerate 3 hrs/day of therapy, goal is for Pt to return home with pg caregivers and family support.
[2019-07-17 17:11] VITALS: BP 115/43
--- NOTE | 2019-07-17 17:15 | NUR ---
PT BACK FROM VIDEO SWALLOWING TEST. PT IS TO BE NPO PER S[EECH THERAPIST DUE TO ASPIRATION. PT KEPT NPO AT DINER TIME. IV ZOSYN INFUSING.
[2019-07-17 18:53] LABS: URINE BILIRUBIN NEGATIVE (Negative); URINE BLOOD 3+ (Negative); URINE CLARITY CLOUDY; URINE COLOR RED; URINE GLUCOSE-RANDOM NEGATIVE (Negative); URINE KETONES NEGATIVE (Negative); URINE LEUKOCYTES NEGATIVE (Negative); URINE NITRITE NEGATIVE (Negative); URINE PROTEIN 2+ (Negative); URINE UROBILINOGEN 0.2 E.U./dl (0.2-1.0)
[2019-07-17 18:55] LABS: URINE RBC >20 Many /HPF (0-2)
[2019-07-17 18:56] LABS: SQUAMOUS NONE SEEN /LPF (0-3); URIC ACID CRYSTALS 4-10 Moderate /LPF (None Seen); URINE WBC 0-5 Rare /HPF (0-5)
[2019-07-17 18:57] LABS: BACTERIA 1-9 Few /HPF (None Seen); HYALINE CASTS 0-3 Few /LPF (None Seen)
[2019-07-17 18:58] LABS: MUCUS None Seen strn/LPF (None Seen)
--- NOTE | 2019-07-17 18:58 | NUR ---
BLOOD TINGED URINE SEEN IN THE MORNING, HOSPITALIST PAGED ABOUT IT. URINE COLOR CHANGED TO RED IN THE AFTERNOON. DR CORDUROY CUTTER OPERATOR MADE AWARE. UA AND CPK LAB ORDERED. SEE CHART. UA SENT TO LAB. AWAITING RESULT
[2019-07-17 20:00] VITALS: BP 109/41
[2019-07-17 23:51] VITALS: BP 132/53
[2019-07-18 04:32] VITALS: BP 114/40
[2019-07-18 05:41] LABS: HEMATOCRIT 21.8 % (42.0-52.0); HEMOGLOBIN 7.1 gm/dL (14.0-18.0); MCH 27.5 pg (26.0-34.0); MCHC 32.6 g/dL (28.0-37.0); MCV 84.2 fL (80.0-100.0); MPV 8.1 fl. (7.2-11.1); RBC 2.59 mil/uL (4.50-6.00); RDW-CV 16.1 % (10.5-14.5); WBC 16.6 thou/uL (4.0-11.0)
[2019-07-18 05:50] LABS: CALCIUM 8.2 mg/dL (8.5-10.1); CREATININE 1.3 mg/dL (0.6-1.3); MAGNESIUM 2.7 mg/dL (1.8-2.4); POTASSIUM 3.9 mmol/L (3.5-5.1)
[2019-07-18 08:00] VITALS: BP 118/43
[2019-07-18 12:00] VITALS: BP 121/36
[2019-07-18 14:50] LABS: CALCIUM 8.1 mg/dL (8.5-10.1); CREATININE 1.4 mg/dL (0.6-1.3); POTASSIUM 3.9 mmol/L (3.5-5.1)
[2019-07-18 16:00] VITALS: BP 127/42
--- NOTE | 2019-07-18 17:00 | NUR ---
OF TODAY, PT. WOULD REQUIRE ASSIST OF 2 CAREGIVERS 17/01 DUE TO MAX A X 2 FOR TRANSFERS, ROLLING SIDE TO SIDE IN BED, AND MOVING PT. UP TO [facility] FOR ADLS. ATTEMPTED TO DISCUSS NEED FOR A POST-ACUTE CARE STAY WITH PT. AND HE SAID NO. HE SAYS HE WILL GO HOME.
--- NOTE | 2019-07-18 19:02 | NUR ---
ASSUSMED CARE OF PT APPROX 0730. REASSESSMENT COMPLETED CHARTED. MEDICATIONS GIVEN CHARTED. PT IS STRICT NPO. MOUTH CARE GIVEN THIS SHIFT. PTS CAREGIVER AT BEDSIDE FOR MOST OF THIS SHIFT. SAFTEY PRECAUTIONS UTILIZED AND HOURLY ROUNDED. PT STARTED COUGHING UP BLOOD THIS EVENING APPROX 1835, DAUGHTER AT BEDSIDE. NOTIFIED AND ORDERS RECIEVED. BED IN LOW POSITION AND CALL LIGHT WITHIN REACH.
[2019-07-18 20:00] VITALS: BP 110/40
[2019-07-19] VITALS (7 sets, daily range): BP systolic 106–142; BP diastolic 38–56
[2019-07-19 05:03] LABS: MCH 26.8 pg (26.0-34.0); MCHC 31.8 g/dL (28.0-37.0); MCV 84.2 fL (80.0-100.0); MPV 7.8 fl. (7.2-11.1); RBC 2.61 mil/uL (4.50-6.00); WBC 18.1 thou/uL (4.0-11.0)
[2019-07-19 05:19] LABS: CALCIUM 7.6 mg/dL (8.5-10.1); CREATININE 1.3 mg/dL (0.6-1.3); MAGNESIUM 2.5 mg/dL (1.8-2.4); POTASSIUM 3.8 mmol/L (3.5-5.1)
[2019-07-20 03:58] VITALS: BP 126/45
[2019-07-20 08:00] VITALS: BP 111/48
[2019-07-20 10:20] LABS: HEMATOCRIT 22.8 % (42.0-52.0); HEMOGLOBIN 7.3 gm/dL (14.0-18.0); MCH 27.4 pg (26.0-34.0); MCV 85.7 fL (80.0-100.0); MPV 8.5 fl. (7.2-11.1); NUCLEATED RBCS 0 /100WBC; PLATELET COUNT* 274 thou/uL (150-400); RBC 2.67 mil/uL (4.50-6.00); RDW-CV 15.7 % (10.5-14.5); WBC 20.5 thou/uL (4.0-11.0)
[2019-07-20 10:24] LABS: CALCIUM 7.2 mg/dL (8.5-10.1); CREATININE 1.2 mg/dL (0.6-1.3); POTASSIUM 3.4 mmol/L (3.5-5.1)
[2019-07-20 10:59] LABS: ABSOLUTE EOSINOPHILS 0.2 thou/uL (0.0-0.7); ABSOLUTE LYMPHOCYTES 0.4 thou/uL (0.8-5.3); ABSOLUTE NEUTROPHILS 19.9 thou/uL (1.6-8.1); PLATELET ESTIMATE ADEQUATE
[2019-07-20 11:54] LABS: BE 4.9 mmol/L (-2 to +3); PCO2 47.4 mmHg (35.0-45.0); PO2 60.8 mmHg (75.0-100.0); pH 7.418 (7.340-7.450)
[2019-07-20 16:00] VITALS: BP 128/32
--- NOTE | 2019-07-20 19:40 | NUR ---
ASSUMED PT CARE AT 0700, PT ALERT TO SELF, LETHARGIC. LS COARSE WITH CRACKLES, REMAINS ON 15LPM VIA NRB MASK, TOLERATING WELL BUT PT CONT TO DESAT INTO MID 80'S AT TIMES, UNABLE TO TOLERATE RA AT ALL. CARDIAC MONITOT TRACING SINUS RHYTHM, FAMILY EDUCATED ON NPO STATUS, ADMINISTERED ORAL CARE Q 2 HOURS AND PRN. REMOVED BUILT UP DRIED MUCUS AND BLOOD FROM PTS MOUTH AND BACK OF THROAT. UNABLOE TO PLACE NG TUBE D/T PT UNABLE TO TOLERATE RA FOR LONG PERIODS OF TIME AND TUBING COILS IN BACK OF PTS THROAT. HOUSE SUP NOTIFIED AND WILL PLACE ON CENTRAL MELT SPECIALIST TO ALLOW PT TIME TO REST AND AVOID ANY FURTHER TRAUMA. PT CONT TO HAVE Q 2 HOUR TURNS AND HOURLY ROUNDING COMPLETED.
[2019-07-20 20:00] VITALS: BP 128/47
[2019-07-21] VITALS: BP 110/34
[2019-07-21 04:00] VITALS: BP 112/33
[2019-07-21 05:26] LABS: MCH 27.4 pg (26.0-34.0); MCHC 32.2 g/dL (28.0-37.0); MCV 85.1 fL (80.0-100.0); MPV 8.1 fl. (7.2-11.1); RBC 2.47 mil/uL (4.50-6.00); RDW-CV 15.5 % (10.5-14.5); WBC 15.9 thou/uL (4.0-11.0)
[2019-07-21 05:53] LABS: ALBUMIN 1.4 g/dL (3.4-5.0); CREATININE 1.3 mg/dL (0.6-1.3); HEMOGLOBIN 6.8 gm/dL (14.0-18.0); MAGNESIUM 2.2 mg/dL (1.8-2.4); PHOSPHORUS* 3.6 mg/dL (2.5-4.9)
[2019-07-21 06:03] LABS: POTASSIUM 2.9 mmol/L (3.5-5.1)
--- NOTE | 2019-07-21 07:15 | NUR ---
CHNAGE OF SHIFT, BEDSIDE REPORT GIVEN PATIENT SEEN AT BESIDE, IN BED RESTING ASSUMED PATIENT CARE
[2019-07-21 08:00] VITALS: BP 122/44
[2019-07-21 10:17] LABS: HEMATOCRIT 23.2 % (42.0-52.0); HEMOGLOBIN 7.4 gm/dL (14.0-18.0); MCH 27.3 pg (26.0-34.0); MCHC 32.1 g/dL (28.0-37.0); MCV 85.1 fL (80.0-100.0); MPV 7.9 fl. (7.2-11.1); NUCLEATED RBCS 0 /100WBC; PLATELET COUNT* 346 thou/uL (150-400); RBC 2.72 mil/uL (4.50-6.00); RDW-CV 16.1 % (10.5-14.5); WBC 17.9 thou/uL (4.0-11.0)
[2019-07-21 11:03] LABS: ABSOLUTE EOSINOPHILS 0.2 thou/uL (0.0-0.7); ABSOLUTE LYMPHOCYTES 0.4 thou/uL (0.8-5.3); ABSOLUTE MONOCYTES 0.4 thou/uL (0.0-1.2); ANISOCYTOSIS 1+; OVALOCYTES Occasional; PLATELET ESTIMATE ADEQUATE; POIKILOCYTOSIS 1+
[2019-07-21 12:24] VITALS: BP 111/55
[2019-07-21 15:50] VITALS: BP 109/37
[2019-07-21 18:28] LABS: HEMATOCRIT 21.8 % (42.0-52.0)
[2019-07-21 20:10] VITALS: BP 112/43
[2019-07-22] VITALS: BP 121/43
[2019-07-22 04:00] VITALS: BP 135/48
[2019-07-22 05:26] LABS: ABSOLUTE EOSINOPHILS 0.4 thou/uL (0.0-0.7); ABSOLUTE LYMPHOCYTES 0.6 thou/uL (0.8-5.3); ABSOLUTE MONOCYTES 0.4 thou/uL (0.0-1.2); ABSOLUTE NEUTROPHILS 13.8 thou/uL (1.6-8.1); BASOPHILS 0.2 %; EOSINOPHILS 2.8 %; HEMATOCRIT 21.9 % (42.0-52.0); MCHC 31.9 g/dL (28.0-37.0); MCV 84.8 fL (80.0-100.0); MONOCYTES 2.5 %; MPV 7.6 fl. (7.2-11.1); NUCLEATED RBCS 0 /100WBC; PLATELET COUNT* 351 thou/uL (150-400); POLYS 90.5 %; RBC 2.58 mil/uL (4.50-6.00); RDW-CV 16.1 % (10.5-14.5); WBC 15.3 thou/uL (4.0-11.0)
[2019-07-22 05:54] LABS: ALBUMIN 1.4 g/dL (3.4-5.0); CALCIUM 7.3 mg/dL (8.5-10.1); CREATININE 1.3 mg/dL (0.6-1.3); MAGNESIUM 2.3 mg/dL (1.8-2.4); PHOSPHORUS* 2.1 mg/dL (2.5-4.9); POTASSIUM 3.1 mmol/L (3.5-5.1)
--- NOTE | 2019-07-22 08:01 | NUR ---
PT CARE ASSUMED AT 1930. SAT MAINTAINED IN 15L NRB. PT IS LETHARGIC. RESPONSIVE TO PAIN AND SPEECH. CALL LIGHT WITHIN REACH AND BED IN LOW POSITION. HALL IN PLACE AND DRAINING. HOURLY ROUNDING DONE FOR PT SAFETY.
[2019-07-22 13:19] VITALS: BP 103/32
[2019-07-22 16:30] VITALS: BP 112/47
[2019-07-22 20:20] VITALS: BP 126/44
[2019-07-23] VITALS (7 sets, daily range): BP systolic 109–143; BP diastolic 41–56
--- NOTE | 2019-07-23 05:05 | NUR ---
PT CARE ASSUMED AT 1930. SAT MAINTAINED IN NRB MASK. PT IS LETHARGIC BUT ORIENTED TO PERSON AND PLACE. DENIES PAIN. HALL IN PLACE AND DRAINING. PT COMPLIANT WITH THE MASK, ABLE TO ANSWER THE QUESTIONS WITH YES AND NO. CALL LIGHT WITHIN REACH AND BED IN LOW POSITION. HOURLY ROUNDING DONE FOR PT SAFETY.
[2019-07-23 05:44] LABS: HEMATOCRIT 20.9 % (42.0-52.0); MCH 27.8 pg (26.0-34.0); MCHC 32.5 g/dL (28.0-37.0); MCV 85.7 fL (80.0-100.0); MPV 7.5 fl. (7.2-11.1); RBC 2.43 mil/uL (4.50-6.00); WBC 10.6 thou/uL (4.0-11.0)
[2019-07-23 06:05] LABS: ALBUMIN 1.3 g/dL (3.4-5.0); CREATININE 1.3 mg/dL (0.6-1.3); MAGNESIUM 2.2 mg/dL (1.8-2.4); POTASSIUM 3.4 mmol/L (3.5-5.1)
[2019-07-23 06:17] LABS: HEMOGLOBIN 6.8 gm/dL (14.0-18.0)
--- NOTE | 2019-07-23 15:26 | NUR ---
Spoke with , requested that CM contact family to discuss difference between palliative and hospice, CM left VM for Pt's dtr, awaiting call back
[2019-07-23 18:37] LABS: HEMATOCRIT 26.2 % (42.0-52.0); HEMOGLOBIN 8.4 gm/dL (14.0-18.0)
[2019-07-24] VITALS (9 sets, daily range): BP systolic 101–145; BP diastolic 39–59
--- NOTE | 2019-07-24 04:43 | NUR ---
RECIEVED REPORT AND ASSUMED CARE AT 1900. VSS. CARDIAC MONITORING IN PLACE. ASSESSMENT COMPLETED CHARTED. PT DENIES COMPLAINTS OF PAIN. PT BEDREST/ 15L NRB MASK. BED LOCKED IN LOWEST POSITION, CALL LIGHT WITHIN REACH.
[2019-07-24 06:18] LABS: HEMATOCRIT 24.7 % (42.0-52.0); HEMOGLOBIN 8.3 gm/dL (14.0-18.0); MCH 28.7 pg (26.0-34.0); MCHC 33.5 g/dL (28.0-37.0); MCV 85.8 fL (80.0-100.0); MPV 7.9 fl. (7.2-11.1); RBC 2.87 mil/uL (4.50-6.00); WBC 10.1 thou/uL (4.0-11.0)
[2019-07-24 06:38] LABS: ALBUMIN 1.3 g/dL (3.4-5.0); CALCIUM 6.9 mg/dL (8.5-10.1); CREATININE 1.6 mg/dL (0.6-1.3); MAGNESIUM 2.1 mg/dL (1.8-2.4); PHOSPHORUS* 4.2 mg/dL (2.5-4.9); POTASSIUM 3.9 mmol/L (3.5-5.1)
--- NOTE | 2019-07-24 09:30 | NUR ---
Spoke with dtr in room, dtr wants to speak with Dr prior to deciding POC. CM to f/u later
--- NOTE | 2019-07-24 12:46 | NUR ---
ASSUMED CARE OF PT AT 0730. PT LYING IN BED. DAUGHTER AND CAREGIVER AT BEDSIDE. PT LETHARGIC, SLEEPING. PT DOES NOT APPEAR TO BE IN ANY PAIN. TRACING SR ON THE WELDER/FITTER. ON 15L NRB MASK AND 10 L HIGH FLOW NC. CONTINUOUS PULSE OX IN PLACE- SAT UPPER 90'S WITH 02. COARSE, CRACKLE LUNG SOUNDS NOTED. DR ALLAN HERE TO SEE PT. ATTEMPTING TO TITRATE PT 02- PT CURRENTLY ON 15L NRB MASK AND 6L HIGH FLOW NC SAT 92-93%. PT RESPIRATORY RATE 22-28. HALL TO DEPENDENT DRAINAGE. PT NPO. PT GOAL FOR TODAY IS TITRATE OXYGEN AND KEEP PT COMFORTABLE. AM ASSESSMENT CHARTED. MEDICATIONS PER AUG. PT REPOSITIONED EVERY 2 HOURS FOR COMFORT. HOURLY ROUNDING OBSERVED. BED IN LOW POSITION. BED ALARM IN PLACE. FALL PRECAUTIONS IN PLACE. CALL LIGHT WITHIN REACH. WILL CONTINUE PLAN OF CARE.
--- NOTE | 2019-07-24 14:46 | NUR ---
Spoke with dtr at bedside. Per dtr, Pt has 2 more days of ABX and then the plan is for Pt to go home with hospice if he continues to show no improvement. CM provided Pt with a list of hospice agencies and will info visits as dtr decides which agency she wants to use. CM answered questions regarding hospice. Updated Dr and nurse.
--- NOTE | 2019-07-24 18:09 | NUR ---
PT NOT PROGRESSING TOWARDS GOALS. UNABLE TO TITRATE OXYGEN. PT WORKED WITH PHYSICAL THERAPY- SAT DROPPED IN THE 80'S. HIGH FLOW NC INCREASED TO 15L ALONG WITH NRB MASK AT 15L SAT 96-97%. 2 NEW IV'S PLACED PER WOOL FLEECE SORTERNIKOLAI. DAUGHTER AND CAREGIVER AT BEDSIDE THROUGHOUT SHIFT. NELSON GILES'D PER DR ALLAN. CONTINUES TO TRACE SR ON THE INSPECTOR EYEGLASS FRAMES. STRICT NPO. HALL TO DEPENDENT DRAINAGE. PRN MORPHINE AND ATIVAN GIVEN ONCE PER SHIFT FOR AIR HUNGER. HOSPICE TO MEET WITH FAMILY TOMORROW AROUND 1400. MEDICATIONS PER AUG. PT REPOSITIONED EVERY 2 HOURS FOR COMFORT. HOURLY ROUNDING OBSERVED. BED IN LOW POSITION. BED ALARM IN PLACE. FALL PRECAUTIONS IN PLACE. CALL LIGHT WITHIN REACH. WILL CONTINUE PLAN OF CARE.
[2019-07-25 00:07] VITALS: BP 118/38
[2019-07-25 04:20] VITALS: BP 138/53
--- NOTE | 2019-07-25 04:57 | NUR ---
ATTEMPTED TO TITRATE O2 DOWN TO 10L ON HIFLO NC, NOT SUCCESSFUL, RETURNED TO 15L D/T DE-SAT OF PT. PT HAS BEEN NONRESPONSIVE THIS SHIFT, VS STABLE. PRN MORPHINE GIVEN FOR AIR HUNGERY X2 THIS SHIFT. REPOISTION Q2HRS, ORAL CARE PROVIDED, BED ALARM ON AND CALL LIGHT WITHIN REACH.
[2019-07-25 06:50] LABS: HEMATOCRIT 26.9 % (42.0-52.0); HEMOGLOBIN 8.8 gm/dL (14.0-18.0); MCH 28.5 pg (26.0-34.0); MCHC 32.8 g/dL (28.0-37.0); RBC 3.1 mil/uL (4.50-6.00); RDW-CV 16.7 % (10.5-14.5); WBC 10.8 thou/uL (4.0-11.0)
[2019-07-25 07:16] LABS: ALBUMIN 1.3 g/dL (3.4-5.0); CALCIUM 7.2 mg/dL (8.5-10.1); CREATININE 1.9 mg/dL (0.6-1.3); MAGNESIUM 2.3 mg/dL (1.8-2.4); PHOSPHORUS* 5.3 mg/dL (2.5-4.9)
[2019-07-25 08:00] VITALS: BP 115/42
--- NOTE | 2019-07-25 10:14 | NUR ---
Viki from [facility] to come and meet with family today at 2pm.
[2019-07-25 11:30] VITALS: BP 96/31
--- NOTE | 2019-07-25 18:24 | NUR ---
ASSUSMED CARE OF PT APPROX 0730. REASSESSMENT COMPLETED CHARTED. MEDICATIONS GIVEN CHARTED. PT HAS BEEN NON-RESPONSIVE THIS SHIFT. PTS CONDITION DISCUSSED WITH FAMILY. PROVIDER DISCUSSED CARE WITH FAMILY. FAMILY HAD MEETING WITH HOSPICE APPROX 1400. Q2T. HOURLY ROUNDING, SAFTEY PRECAUTIONS UTILIZED.
[2019-07-25 20:00] VITALS: BP 130/32
[2019-07-26 00:56] VITALS: BP 137/42
[2019-07-26 04:00] VITALS: BP 143/43
--- NOTE | 2019-07-26 05:24 | NUR ---
PT O2 DOWN TO 87, HIFLOW NC INCREASED TO 15 ALONG WITH NRB MASK AT 15 WITH O2 AT 89%. PT REMAINED NONRESPONSIVE THIS SHIFT. LOW GRADE FEVER NOTED, ORAL CARE PROVIDED, Q2T FOR COMFORT AND PRESSURE RELEASE. REMAINS OF CONT PULSE OX FOR MONITORING.
[2019-07-26 08:00] VITALS: BP 87/23
--- NOTE | 2019-07-26 11:57 | NUR ---
Per Dr, do not anticipate that Pt will live much longer. Dtr aware and in agreement with Pt remaining in the hospital, comfort care initiated. Dtr opted for CM not to contact [facility] for GIP. Dtr in room at bedside.
--- NOTE | 2019-07-26 14:15 | NUR ---
ASSUMED PT CARE AT 0800, UNRESPONSIVE, BEDREST, O2 SAT MID 80'S ON 15L HIGH FLOW NC, 15L NONREBREATHER MASK. BP RUNS LOW. DR/PROVIDER NOTIFY. PT STATUS CHANGED TO [facility]. ON COMFORT CARE. HOURLY ROUNDING, MOUTH CARE PROVIDE, FAMILY ON BEDSIDE. PT TRANSFER TO JOINT&SPINE.
--- NOTE | 2019-07-26 19:00 | NUR ---
PATIENT REC'D FROM TELE FOR COMFORT CARE THIS AFTERNOON. PATIENT UNRESPONSIVE. RESPS NOTED 28, USE OF ACCESSORY MUSCLES NOTED. LS NOTED COARSE THROUGHOUT. EDEMA NOTED GEN. HOB ELEVATED 30-45DEGREES. 15L/NRB ON W/ 15L HIFLOW/NC ON WELL. HALL CATH NOTED W/ MIN URINE OUTPUT. FAMILY MEMBERS PRESENT AT BEDSIDE. FAMILY EDUCATED ON COMFORT CARE AND THE DYING PATIENT. ALL Qs ANSWERED TO FAMILY SATISFACTION. FAMILY INSTRUCTED TO CALL W/ ANY NEEDS. HRLY ROUNDS DONE. ~TJRN
--- NOTE | 2019-07-27 04:12 | NUR ---
ASSUMED CARE OF PT 07/26/19 AT APPROX 1915, PT UNRESPONSIVE AND ON COMFORT CARE, HOB ELEVATED, PT ON 30L OXYGEN - 15L HIGH FLOW NC AND 15L NRB, USE OF ACCESSORY MUSCLES NOTED, ANASARCA NOTED, HALL IN PLACE WITH MINIMAL OUTPUT, DAUGHTER AT BEDSIDE, MORPHINE AND ATIVAN ADMINISTERED FOR COMFORT ORDERED, HOURLY ROUNDINGS COMPLETED, WILL CONTINUE TO MONITOR.
--- NOTE | 2019-07-27 09:57 | NUR ---
ASSESSMENT COMPLETE. PT AT 0800, VERIFIED BY TWO RN AT BEDSIDE. DAUGHTER AT BEDSIDE, CALLED [facility] HOME. ONCE FAMILY LEFT IV AND HALL TAKEN OUT. PT LEFT WITH HOME AT 0940. DENTURES SENT WITH DAUGHTER, PATIENT HAD NO OTHER BELONGINGS. [facility]N NOTIFIED AT 0811, NOT ABLE TO DONATE DUE TO AGE-SEE DOCUMENTATION FOR REF NUMBER. SEE DOCUMENTATION FOR OTHER DETAILS.
--- NOTE | 2019-07-27 10:05 | NUR ---
PT. WAS PLACED ON COMFORT MEASURES AND PRIOR TO O.T. ABLE TO PLACE NOTE TO DISMISS PT. FROM O.T. [place].
== END 2019-07-27 08:00 | DRG 871 ==
LOC: M.ERS 11:58 → M.2W 13:32 → M.TBA-ER 13:32 → M.2W 15:58 → M.ORTHSURG 07-26 14:05
PROVIDERS: Emergency Medicine; Family Medicine; Internal Medicine; ADMIT Internal Medicine
PROC: 30233N0 Transfusion of Autologous Red Blood Cells into Peripheral Vein, Percutaneous Approach (ICD-10-PCS; principal; 2019-07-23)
DX: A41.9 Sepsis, unspecified organism (principal); J69.0 Pneumonitis due to inhalation of food and vomit; E43 Unspecified severe protein-calorie malnutrition; G92 Toxic encephalopathy; J96.01 Acute respiratory failure with hypoxia; I50.43 Acute on chronic combined systolic (congestive) and diastolic (congestive) heart failure; D68.59 Other primary thrombophilia; I48.92 Unspecified atrial flutter; N17.9 Acute kidney failure, unspecified; E87.0 Hyperosmolality and hypernatremia; I42.8 Other cardiomyopathies; I48.0 Paroxysmal atrial fibrillation; F03.90 Unspecified dementia, unspecified severity, without behavioral disturbance, psychotic disturbance, mood disturbance, and anxiety; E86.0 Dehydration; I11.0 Hypertensive heart disease with heart failure; R13.10 Dysphagia, unspecified; I69.391 Dysphagia following cerebral infarction; K20.9 Esophagitis, unspecified; Z66 Do not resuscitate; I27.20 Pulmonary hypertension, unspecified; E87.6 Hypokalemia; Z79.82 Long term (current) use of aspirin; Z86.718 Personal history of other venous thrombosis and embolism; Z79.01 Long term (current) use of anticoagulants; Z90.02 Acquired absence of larynx; Z85.828 Personal history of other malignant neoplasm of skin; Z85.89 Personal history of malignant neoplasm of other organs and systems; Z87.891 Personal history of nicotine dependence; Z79.2 Long term (current) use of antibiotics; Z68.25 Body mass index [BMI] 25.0-25.9, adult; Z79.51 Long term (current) use of inhaled steroids